=== PATIENT | female | born 1935 | race Caucasian/White ===

== ENCOUNTER 2018-07-06 02:30 | Emergency (ER) | payer SELFPAY ==
[~2018-07-06] VITALS: Ht 149.9 cm; Wt 44.5 kg
[2018-07-06 02:30] VITALS: BP 174/71
--- NOTE | 2018-07-06 02:30 | NUR ---
BIB EMS, PT PRESENTS TO ED AFTER FAMILY CALLED 911. PT WAS AT HOME, EXPERIANCED MECHANICAL FALL. C/O SEVERE THROBBING CONSTANT PAIN TO LEFT HIP 10/10. CMS INTACT. LEFT LEG EXTERNAL ROTATION AND SHORTENING NOTED. A&OX4. NEURO INTACT. PT DENIES HITTING HEAD. C/O NAUSEA WITHOUT VOMITING D/T PAIN. ZOFRAN, FENTANYL, AND IV FLUIDS PROVIDED ENROUTE. PT TRANSFERED FROM [facility] TO BED 5 WITH ASSISTANCE OF NURSING AND EMS. VSS. DR DE LEON AT BEDSIDE EVALUATING PT. POSITIONED IN BED FOR COMFORT. SIDE RAILES UP. CONTINUE TO MONITOR.
--- NOTE | 2018-07-06 02:30 | NUR ---
PT ARRIVED TO ED VIA EMS WITH VSS. TRANSFERED FROM [facility] TO BED WITH ASSISTANCE BY EMS AND NURSING.
--- NOTE | 2018-07-06 03:30 | NUR ---
PT IN BED WITH FAMILY AT BEDSID. PT A&OX4, AWAKE, VSS, CMS INTACT BILAT LOWER EXTREMITIES. PT STATES 2/10 PAIN WHILE IN BED RESTING AND UNMOVING. ER DR NOTIFIED. CONTINUE TO MONITOR.
[2018-07-06 03:48] LABS: BASOPHILS % (AUTO) 0.4 % (0.0-2.0); EOSINOPHILS % (AUTO) 0.2 % (0.0-4.0); HEMATOCRIT 33.8 % (36-48); HEMOGLOBIN 11.3 g/dL (12.0-16.0); LYMPHOCYTES # (AUTO) 1.1 K/uL (2.5-16.5); LYMPHOCYTES % (AUTO) 9.5 % (20.5-51.1); MEAN CORPUSCULAR HEMOGLOBIN 31 pg (27-31); MEAN CORPUSCULAR HGB CONC 33 g/dL (33-37); MEAN CORPUSCULAR VOLUME 93.2 fL (80-94); MONOCYTES # (AUTO) 0.6 K/uL (0.8-1.0); MONOCYTES % (AUTO) 5.4 % (1.7-9.3); NEUTROPHILS % (AUTO) 84.5 % (42.2-75.2); PLATELET COUNT (AUTO) 233 K/uL (140-450); RED BLOOD CELL COUNT(AUTO) 3.63 MIL/uL (4.20-5.40); RED CELL DISTRIBUTION WIDTH 12.8 % (11.6-13.7); WHITE BLOOD COUNT (AUTO) 11.8 K/uL (4.8-10.8)
[2018-07-06 03:50] LABS: ANION GAP 12.7 (8-16); CARBON DIOXIDE 25.3 mmol/L (21-32); CHLORIDE 106 mmol/L (98-107); CREATININE 0.8 mg/dL (0.6-1.3); GLUCOSE 142 mg/dL (74-106); SODIUM SERUM 140 mmol/L (136-145); UREA NITROGEN, BLOOD 24 mg/dL (7-18)
[2018-07-06 03:56] LABS: ALBUMIN 3.5 g/dL (3.4-5.0); ASPARTATE AMINOTRANSFERASE 27 U/L (15-37); TOTAL BILIRUBIN 0.4 mg/dL (0.0-1.0)
[2018-07-06 03:58] LABS: PROTHROMBIN TIME 10.1 secs (10.8-13.4)
--- NOTE | 2018-07-06 05:40 | NUR ---
Per Dr. Elizondo's verbal orders. Interstion of Huff Catheter, 14 persian, inserted per sterile procedure. Pt tolerated procedure well. 250 ml of clear yellow urine drained upon catheter insertion.
[2018-07-06] MEDS ORDERED: LISI-420 PO (05:53)
[2018-07-06] MEDS ORDERED: HYDR12.543 PO (05:56)
--- NOTE | 2018-07-06 06:15 | NUR ---
REPORT CALLED AND GIVEN TO GEOFFREY KONG, [facility]. [facility] ETA 30 MIN. PT VSS. 12/04 PAIN. CMS INTACT BILAT LOWER EXTREMITIES. CONTINUE TO MONITOR.
[2018-07-06 06:21] LABS: APPEARANCE,URINE CLEAR (CLEAR); BILIRUBIN,URINE NEGATIVE (NEGATIVE); BLOOD, URINE NEGATIVE (NEGATIVE); COLOR,URINE YELLOW (YELLOW); LEUKOCYTE ESTERASE ,URINE NEGATIVE (NEGATIVE); NITRITE, URINE NEGATIVE (NEGATIVE); PH,URINE 7.5 (5.0-9.0); UGLUCOSE NEGATIVE (NEGATIVE)
[2018-07-06 06:29] LABS: RBC,URINE 0-5 (RARE) /HPF (0-5); WBC,URINE 0-5 (RARE) /HPF (0-5)
[2018-07-06 07:04] VITALS: BP 145/68
--- NOTE | 2018-07-06 07:04 | NUR ---
Patient to be transferred to [facility]. Is being transferred due to trochanteric fracture of left femur. Receiving facility has accepting physician and available space. ER physician has signed transfer form. Patient or responsible constitution party has agreed to transfer and signed form. Patient belongings inventoried and will be sent with patient. Copy of nursing notes, lab reports, EKG, Physicians Orders and X-rays to be sent with patient. Report called to Elisabet KONG at receiving facility. Transported by [facility] ambulance service.
== END 2018-07-06 07:04 | disposition short-term general hospital (02) ==
LOC: MED 02:30
DX: S72.142A Displaced intertrochanteric fracture of left femur, initial encounter for closed fracture (principal); I10 Essential (primary) hypertension; Z79.899 Other long term (current) drug therapy; W01.0XXA Fall on same level from slipping, tripping and stumbling without subsequent striking against object, initial encounter; Y93.89 Activity, other specified; Y92.89 Other specified places as the place of occurrence of the external cause; Y99.8 Other external cause status
CPT/HCPCS: 36415; 72192; 80053; 81001; 85025; 85610; 85730; 99285